=== PATIENT | male | born 1965 | race Caucasian/White ===

== ENCOUNTER 2023-07-25 09:15 | Outpatient (RCR) | payer OTHER, SELFPAY ==
[2023-07-21 15:09] VITALS: BMI 25.1
== END 2023-09-12 10:16 | disposition home or self-care (01) ==
LOC: ANHDMC 09:15
DX: E11.9 Type 2 diabetes mellitus without complications (principal); Z71.89 Other specified counseling; Z71.3 Dietary counseling and surveillance
CPT/HCPCS: 97802; G0108